=== PATIENT | male | born 1985 | race African-American/Black ===

== ENCOUNTER 2023-09-29 00:38 | Emergency (ER) | payer OTHER ==
[~2023-09-29] VITALS: Ht 182.9 cm; Wt 104.3 kg
[2023-09-29 00:44] VITALS: BP 119/76; PULSE 101; RESP 18; TEMP 97.4; O2SAT 99
== END 2023-09-29 00:53 ==
LOC: MED 00:38
DX: Z02.89 Encounter for other administrative examinations (principal); V89.2XXA Person injured in unspecified motor-vehicle accident, traffic, initial encounter; Y93.89 Activity, other specified; Y92.410 Unspecified street and highway as the place of occurrence of the external cause; Y99.8 Other external cause status
CPT/HCPCS: 99283